=== PATIENT | female | born 1995 | race African-American/Black ===

== ENCOUNTER 2020-03-25 10:47 | Observation (INO) | payer MEDICAID, SELFPAY ==
[~2020-03-25] VITALS: Ht 142.2 cm; Wt 44.9 kg
[2020-03-25] MEDS ORDERED: PNV91TAB10 PO (11:24)
[2020-03-25] MEDS ORDERED: NACL 0.9% 1,000 ML IV SCH (12:15)
[2020-03-25] MEDS ORDERED: ACETAMINOPHEN 325 MG TAB PO PRN (12:15)
[2020-03-25] MEDS ORDERED: NITROFURANTOIN 100 MG CAP ONE (13:44)
[2020-03-25] MEDS ORDERED: NITROFURANTOIN 100 MG CAP PO SCH (14:00)
== END 2020-03-25 14:10 | disposition home or self-care (01) ==
LOC: MMU 10:47 → MLD 11:00
PROVIDERS: ADMIT Obstetrics & Gynecology; ATTEND Obstetrics & Gynecology
DX: Z03.818 Encounter for observation for suspected exposure to other biological agents ruled out (principal); O26.892 Other specified pregnancy related conditions, second trimester; R10.30 Lower abdominal pain, unspecified; M54.5 Low back pain; R82.998 Other abnormal findings in urine; Z3A.24 24 weeks gestation of pregnancy
CPT/HCPCS: 81000; G0378; J0696; J7060; U0003